=== PATIENT | male | born 1995 | race Caucasian/White ===

== ENCOUNTER → 2017-10-10 | Outpatient (CLI) | payer SELFPAY ==
[~2017-10-10] MED LIST: NORCO 325 MG-51 TAB PO
== END ==
LOC: COL.RAD 12:46
DX: N13.0 Hydronephrosis with ureteropelvic junction obstruction (principal); Q62.11 Congenital occlusion of ureteropelvic junction
CPT/HCPCS: A9562

== ENCOUNTER 2018-01-16 16:44 | Emergency (ER) | payer SELFPAY ==
[~2018-01-16] VITALS: Ht 165.1 cm; Wt 72.7 kg
[2018-01-16 16:52] VITALS: BP 135/74; TEMP 98.8
[2018-01-16 17:28] LABS: COLLECTION METHOD CLEAN CATCH
[2018-01-16 17:33] LABS: BASO % 0.4 % (0.0-2.0); EOS # 0.3 (0.0-0.7); EOS % 2.7 % (0-4.0); GRAN # 7.8 (1.4-6.5); GRAN % 71.4 % (42.2-75.2); LYMPH # 2.2 (1.2-3.4); LYMPH % 20.4 % (20.0-51.0); MEAN CELL VOLUME 83 fl (80.0-100.0); MEAN CORPUSCULAR HEMOGLOBIN 29 pg (27.0-31.0); MEAN CORPUSCULAR HGB CONC 35 g/dl (33.0-37.0); MEAN PLATELET VOLUME 10.7 fl (7.4-10.4); MONO # 0.5 (0.1-0.6); MONO % 4.6 % (1.7-9.3); PLATELET COUNT 181 K/mm3 (130-400); RED BLOOD COUNT 5.54 M/mm3 (4.20-5.60); REDCELL DISTRIBUTION WIDTH-CV 12.8 % (11.5-14.5)
[2018-01-16 17:37] LABS: PH 5 (5-8); SQUAMOUS EPITHELIAL None Seen /hpf; URINE APPEARANCE Clear; URINE BACTERIA None Seen /hpf; URINE BILIRUBIN Negative (NEGATIVE); URINE BLOOD 2+ (NEGATIVE); URINE COLOR Yellow; URINE GLUCOSE Negative (NEGATIVE); URINE KETONE Negative (NEGATIVE); URINE LEUKOCYTE ESTERASE Negative (NEGATIVE); URINE NITRATE Negative (NEGATIVE); URINE PROTEIN(semi-quant) Negative (NEGATIVE); URINE RBC 0-2 /hpf; URINE UROBILINOGEN Negative (NEGATIVE)
[2018-01-16 17:46] LABS: ALANINE AMINOTRANSFERASE 81 U/L (21-72); ALBUMIN 4.6 gm/dL (3.5-5.0); ALKALINE PHOSPHATASE 99 U/L (50-136); ANION GAP 12 mmol/L (7-16); AST,SGOT 31 U/L (15-37); BILIRUBIN,TOTAL 0.3 mg/dL (0.0-1.0); BLOOD UREA NITROGEN 15 mg/dL (9-20); C-REACTIVE PROTEIN < 0.5 mg/dL (0.0-0.9); CALCIUM 9.4 mg/dL (8.4-10.2); CARBON DIOXIDE 23 mmol/L (22-30); CHLORIDE 107 mmol/L (98-107); CREATININE, serum 0.85 mg/dL (0.66-1.25); GLUCOSE 103 mg/dL (74-106); POTASSIUM 4.3 mmol/L (3.4-5.0); SODIUM 142 mmol/L (137-145); TOTAL PROTEIN 7.9 gm/dL (6.4-8.2)
[2018-01-16] MEDS ORDERED: NORCO 325 MG-51 TAB PO (17:57)
[2018-01-16 18:16] VITALS: PULSE 68
== END 2018-01-16 18:17 | disposition home or self-care (01) ==
LOC: COL.ER 16:44
PROVIDERS: Physician Assistant
DX: R10.11 Right upper quadrant pain (principal); Q62.11 Congenital occlusion of ureteropelvic junction

== ENCOUNTER 2018-01-30 10:44 | Inpatient (IN) | payer SELFPAY ==
[~2018-01-30] VITALS: Ht 167.6 cm; Wt 77.0 kg
[2018-02-19] VITALS (12 sets, daily range): BP systolic 119–130; BP diastolic 42–73; PULSE 51–103; TEMP 97.9–100.6
[2018-02-20 01:30] VITALS: BP 120/54; PULSE 104; TEMP 98.5
[2018-02-20 05:20] VITALS: BP 112/43; PULSE 86; TEMP 97.5
[2018-02-20 06:53] LABS: BASO % 0.1 % (0.0-2.0); GRAN # 9.2 (1.4-6.5); GRAN % 86.2 % (42.2-75.2); HEMOGLOBIN 13.6 g/dl (13.5-18.0); LYMPH % 9.1 % (20.0-51.0); MEAN CELL VOLUME 82 fl (80.0-100.0); MEAN CORPUSCULAR HEMOGLOBIN 28 pg (27.0-31.0); MEAN CORPUSCULAR HGB CONC 34 g/dl (33.0-37.0); MEAN PLATELET VOLUME 11.8 fl (7.4-10.4); MONO # 0.4 (0.1-0.6); MONO % 4.1 % (1.7-9.3); PLATELET COUNT 167 K/mm3 (130-400); RED BLOOD COUNT 4.86 M/mm3 (4.20-5.60)
[2018-02-20 08:06] LABS: CALCIUM 8.8 mg/dL (8.4-10.2); CREATININE, serum 0.96 mg/dL (0.66-1.25); POTASSIUM 4.2 mmol/L (3.4-5.0)
[2018-02-20 09:14] VITALS: BP 120/53; PULSE 90; TEMP 98.5
[2018-02-20 13:21] VITALS: BP 120/55; PULSE 78; TEMP 98.1
[2018-02-20 17:45] VITALS: BP 123/55; PULSE 79; TEMP 98.3
[2018-02-20 21:52] VITALS: BP 127/65; PULSE 68; TEMP 98.6
[2018-02-21 02:00] VITALS: BP 122/59; PULSE 67; TEMP 98.1
[2018-02-21 05:25] VITALS: BP 128/48; PULSE 61; TEMP 98.3
[2018-02-21 09:41] VITALS: BP 123/49; PULSE 66; TEMP 98.6
== END 2018-02-21 09:50 | disposition home or self-care (01) | DRG 660 ==
LOC: INPTSU 02-19 09:38 → SURG 02-19 12:00
PROVIDERS: Urology
PROC: 0TT04ZZ Resection of Right Kidney, Percutaneous Endoscopic Approach (ICD-10-PCS; principal; 2018-02-19 12:00)
DX: N13.0 Hydronephrosis with ureteropelvic junction obstruction (principal); N28.9 Disorder of kidney and ureter, unspecified
CPT/HCPCS: A4314; A9284; J0360; J0690; J1100; J1885; J2250; J2270; J2405; J2704; J2710; J3010; J7120

== ENCOUNTER 2021-04-18 15:18 | Emergency (ER) | payer SELFPAY ==
[~2021-04-18] VITALS: Ht 165.1 cm; Wt 79.5 kg
[2021-04-18 15:47] VITALS: TEMP 98.4
[2021-04-18 16:53] LABS: COLLECTION METHOD CLEAN CATCH
[2021-04-18 17:00] LABS: MUCOUS Present /lpf; PH 6 (5-8); SQUAMOUS EPITHELIAL None Seen /hpf; URINE APPEARANCE Clear; URINE BACTERIA None Seen /hpf; URINE BILIRUBIN Negative (NEGATIVE); URINE BLOOD Negative (NEGATIVE); URINE COLOR Yellow; URINE GLUCOSE Negative (NEGATIVE); URINE KETONE Negative (NEGATIVE); URINE LEUKOCYTE ESTERASE Negative (NEGATIVE); URINE NITRATE Negative (NEGATIVE); URINE PROTEIN(semi-quant) 2+ (NEGATIVE); URINE RBC 0-2 /hpf; URINE UROBILINOGEN Negative (NEGATIVE)
[2021-04-18 17:09] LABS: BASO # 0.1 (0.0-0.2); BASO % 0.5 % (0.0-2.0); EOS # 0.2 (0.0-0.7); EOS % 2.4 % (0-4.0); GRAN # 5.8 (1.4-6.5); GRAN % 62.5 % (42.2-75.2); HEMATOCRIT 47.8 % (42.0-52.0); HEMOGLOBIN 16.1 g/dl (13.5-18.0); LYMPH # 2.7 (1.2-3.4); LYMPH % 28.9 % (20.0-51.0); MEAN CELL VOLUME 85 fl (80.0-100.0); MEAN CORPUSCULAR HEMOGLOBIN 29 pg (27.0-31.0); MEAN CORPUSCULAR HGB CONC 34 g/dl (33.0-37.0); MEAN PLATELET VOLUME 11.1 fl (7.4-10.4); MONO # 0.5 (0.1-0.6); MONO % 5.5 % (1.7-9.3); PLATELET COUNT 205 K/mm3 (130-400); RED BLOOD COUNT 5.64 M/mm3 (4.20-5.60); REDCELL DISTRIBUTION WIDTH-CV 12.6 % (11.5-14.5)
[2021-04-18 17:20] LABS: ALANINE AMINOTRANSFERASE 45 U/L (4-49); ALBUMIN 4.5 gm/dL (3.5-5.0); ALKALINE PHOSPHATASE 71 U/L (50-136); ANION GAP 8 mmol/L (7-16); AST,SGOT 29 U/L (15-37); BILIRUBIN,TOTAL 0.4 mg/dL (0.0-1.0); BLOOD UREA NITROGEN 18 mg/dL (9-20); CALCIUM 9.5 mg/dL (8.4-10.2); CARBON DIOXIDE 27 mmol/L (22-30); CHLORIDE 105 mmol/L (98-107); CREATININE, serum 0.92 (0.66-1.25); GLUCOSE 92 mg/dL (74-106); LIPASE 159 U/L (23-300); POTASSIUM 4.1 mmol/L (3.4-5.0); SODIUM 139 mmol/L (137-145); TOTAL PROTEIN 8.2 gm/dL (6.4-8.2)
[2021-04-18 17:21] LABS: C-REACTIVE PROTEIN < 0.5 mg/dL (0.0-0.9)
[2021-04-18 18:20] VITALS: BP 119/71; PULSE 66
== END 2021-04-18 18:21 | disposition home or self-care (01) ==
LOC: COL.ER 15:18
PROVIDERS: Nurse Practitioner Primary Care
DX: M54.6 Pain in thoracic spine (principal)
CPT/HCPCS: J1885; J7030